=== PATIENT | male | born 1980 | race African-American/Black ===

== ENCOUNTER 2017-01-29 21:03 | Emergency (ER) | payer SELFPAY ==
[~2017-01-29 21:03] MED LIST: ULCER MEDICATION PO
[2017-01-29 21:05] VITALS: BP 124/85; PULSE 69; RESP 26; TEMP 99; O2SAT 98
--- NOTE | 2017-01-29 21:43 | PD ---
HPI Chief Complaint: Dizziness Time Seen by Provider: 21:42 Travel History International Travel<30 days: No Contact w/Intl Traveler<30days: No Traveled to known affect area: No History of Present Illness HPI 36-year-old Afro-[place] male presents the emergency department with generalized weakness/dizziness, decreased appetite, nausea, and headache. Patient denies sore throat or ear pain. Patient denies chest pain, but does have some congestion. Patient denies significant abdominal pain other than nausea. No urinary symptoms or diarrhea. Patient has mild body aches. He states his has been sick. Headache pain is about a 4 out of 10. He describes it as pressure. He has no known drug allergies. 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) Social History Alcohol Use: No Tobacco Use: Yes (1 PPD) Substance Use: No Allergies-Medications (Allergen,Severity, Reaction): Coded Allergies: No Known Allergies (Verified Adverse Reaction, Unknown, 01/29/17) Reported Meds & Prescriptions Reported Meds & Active Scripts Active No Active Prescriptions or Reported Medications Review of Systems Except as stated in HPI: all other systems reviewed are Neg General / Constitutional: Positive: Chills, No: Fever Eyes: Positive: Blurred Vision, No: Diploplia, Photophobia, Drainage, Redness, Foreign Body Sensation, Pain, Tearing, Blind Spots, Visual changes, Blindness HENT: Positive: Headaches, Lightheadedness, Rhinitis, Rhinorrhea, Congestion, No: Vertigo, Sore Throat, Nosebleed, Neck Stiffness, Neck Pain, Masses, Dental Difficulties, Earache Cardiovascular: No: Chest Pain or Discomfort Respiratory: No: Cough, Shortness of Breath, Wheezing, Sneezing Gastrointestinal: Positive: Nausea, No: Vomiting, Diarrhea, Abdominal Pain Genitourinary: No: Dysuria Musculoskeletal: Positive: Myalgias, No: Pain Skin: No Rash Neurologic: No: Weakness Psychiatric: No: Depression Endocrine: No: Polydipsia Hematologic/Lymphatic: No: Easy Bruising Physical Exam Narrative GENERAL: Patient appears ill but not septic. SKIN: Warm and dry. Normal color. Normal turgor. HEAD: Atraumatic. Normocephalic. Patient has mild sinus tenderness with percussion to the maxillary sinuses. EYES: Pupils equal and round. No scleral icterus. No injection or drainage. ENT: No nasal bleeding or discharge. Mucous membranes pink and moist. TMs are dull bilaterally. Posterior pharynx seems somewhat erythematous with mild swelling noted. Uvula is midline. No obvious postnasal drip. NECK: Trachea midline. Supple and nontender. CARDIOVASCULAR: Regular rate and rhythm. RESPIRATORY: No accessory muscle use. Coarse breath sounds to auscultation. Breath sounds equal bilaterally. GASTROINTESTINAL: Abdomen soft, non-tender, nondistended. Hepatic and splenic margins not palpable. MUSCULOSKELETAL: Extremities without clubbing, cyanosis, or edema. No obvious deformities. NEUROLOGICAL: Awake and alert. No obvious cranial nerve deficits. Motor grossly within normal limits. Five out of 5 muscle strength in the arms and legs. Normal speech. PSYCHIATRIC: Appropriate mood and affect; insight and judgment normal. Data Data Last Documented VS Vital Signs Date Time Temp Pulse Resp B/P (MAP) Pulse Ox O2 Delivery O2 Flow Rate FiO2 01/29/17 21:48 69 16 132/72 (92) 100 Room Air 01/29/17 21:05 99.0 Orders Orders Complete Blood Count With Diff (01/29/17 21:49) Comprehensive Metabolic Panel (01/29/17 21:49) Urinalysis - C+S If Indicated (01/29/17 21:49) Iv Access Insert/Monitor (01/29/17 21:49) Ecg Monitoring (01/29/17 21:49) Oximetry (01/29/17 21:49) Sodium Chlor 0.9% 1000 Ml Inj (Ns 1000 M (01/29/17 21:49) Sodium Chloride 0.9% Flush (Ns Flush) (01/29/17 22:00) Ondansetron Inj (Zofran Inj) (01/29/17 22:00) Ketorolac Inj (Toradol Inj) (01/29/17 22:00) Influenzae A/B Antigen (01/29/17 21:49) Labs Laboratory Tests Test 01/29/17 21:55 01/29/17 22:35 White Blood Count 8.3 TH/MM3 Red Blood Count 5.82 MIL/MM3 Hemoglobin 13.7 GM/DL Hematocrit 42.0 % Mean Corpuscular Volume 72.2 FL Mean Corpuscular Hemoglobin 23.6 PG Mean Corpuscular Hemoglobin Concent 32.7 % Red Cell Distribution Width 16.1 % Platelet Count 220 TH/MM3 Mean Platelet Volume 8.4 FL Neutrophils (%) (Auto) 53.8 % Lymphocytes (%) (Auto) 37.1 % Monocytes (%) (Auto) 7.0 % Eosinophils (%) (Auto) 1.2 % Basophils (%) (Auto) 0.9 % Neutrophils # (Auto) 4.5 TH/MM3 Lymphocytes # (Auto) 3.1 TH/MM3 Monocytes # (Auto) 0.6 TH/MM3 Eosinophils # (Auto) 0.1 TH/MM3 Basophils # (Auto) 0.1 TH/MM3 CBC Comment DIFF FINAL Differential Comment Blood Urea Nitrogen 12 MG/DL Creatinine 1.02 MG/DL Random Glucose 76 MG/DL Total Protein 7.8 GM/DL Albumin 3.9 GM/DL Calcium Level 9.1 MG/DL Alkaline Phosphatase 53 U/L Aspartate Amino Transf (AST/SGOT) 47 U/L Alanine Aminotransferase (ALT/SGPT) 57 U/L Total Bilirubin 0.4 MG/DL Sodium Level 140 MEQ/L Potassium Level 4.5 MEQ/L Chloride Level 108 MEQ/L Carbon Dioxide Level 26.9 MEQ/L Anion Gap 5 MEQ/L Estimat Glomerular Filtration Rate 100 ML/MIN MDM Medical Decision Making Medical Screen Exam Complete: Yes Emergency Medical Condition: Yes Differential Diagnosis Dizziness. Viral illness. Influenza. Headache. Narrative Course Patient is felt to be medically stable at time of exam. Labs ordered including CBC, CMP, urinalysis, and rapid influenza. IV access is obtained patient is given 4 mg Zofran IV as well as 30 mg Toradol IV. Patient is given 1000 mL normal saline bolus. Rapid influenza is negative. CBC is unremarkable. CMP is unremarkable as well. Patient is felt to have sudden onset viral illness. Patient was given Tamiflu 75 mg twice a day for 5 days for empiric treatment. Patient is to rest, push fluids, take Tylenol Motrin as needed. Follow-up with primary care physician as recommended. Work note is given. Diagnosis Primary Impression: Systemic viral illness Referrals: [facility] Primary Care Physician Patient Instructions: General Instructions, Oseltamivir (By mouth) Departure Forms: Work Release Enter return to work date: Jan 31, 2017 Additional Instructions: Rapid influenza is negative. CBC is unremarkable. CMP is unremarkable as well. Patient is felt to have sudden onset viral illness. Patient was given Tamiflu 75 mg twice a day for 5 days for empiric treatment. Patient is to rest, push fluids, take Tylenol Motrin as needed. Follow-up with primary care physician as recommended. Work note is given. Med/Other Pt SpecificInfo: Prescription(s) given Scripts No Active Prescriptions or Reported Meds Disposition: 01 DISCHARGE HOME Condition: Stable Esau Iglesias Jan 29, 2017 21:43
[2017-01-29 21:48] VITALS: BP 132/72; PULSE 69; RESP 16; O2SAT 100
[2017-01-29] MEDS ORDERED: SODIUM CHLOR 0.9% 1000 ML INJ 1,000 ML IV SCH (21:49)
[2017-01-29] MEDS ORDERED: ONDANSETRON HCL 4 MG/2 ML VIAL IV PUSH ONE (22:00)
[2017-01-29] MEDS ORDERED: KETOROLAC TROMETHAMINE 30 MG/ML (IVP) VIAL IV PUSH ONE (22:00)
[2017-01-29] MEDS ORDERED: SODIUM CHLORIDE 0.9% FLUSH 10 ML FLUSH IV FLUSH PRN (22:00)
[2017-01-29 22:08] LABS: AUTOMATED NEUTROPHIL # 4.5 TH/MM3 (1.8-7.7); BASOPHIL # 0.1 TH/MM3 (0-0.2); BASOPHIL % 0.9 % (0.0-2.0); EOSINOPHIL # 0.1 TH/MM3 (0-0.4); EOSINOPHIL % 1.2 % (0.0-4.0); HEMOGLOBIN 13.7 GM/DL (13.0-17.0); LYMPH % 37.1 % (9.0-44.0); LYMPHOCYTE # 3.1 TH/MM3 (1.0-4.8); MEAN CELL VOLUME 72.2 FL (80.0-100.0); MEAN CORPUSCULAR HEMOGLOBIN 23.6 PG (27.0-34.0); MEAN CORPUSCULAR HGB CONC 32.7 % (32.0-36.0); MEAN PLATELET VOLUME 8.4 FL (7.0-11.0); MONOCYTE # 0.6 TH/MM3 (0-0.9); NEUT % 53.8 % (16.0-70.0); PLATELET COUNT 220 TH/MM3 (150-450); RED BLOOD COUNT 5.82 MIL/MM3 (4.50-5.90); RED CELL DISTRIBUTION WIDTH 16.1 % (11.6-17.2); WHITE BLOOD COUNT 8.3 TH/MM3 (4.0-11.0)
[2017-01-29 22:33] LABS: ALBUMIN 3.9 GM/DL (3.4-5.0); ALKALINE PHOSPHATASE 53 U/L (45-117); ALT (GPT) 57 U/L (12-78); AST (GOT) 47 U/L (15-37); BICARBONATE 26.9 MEQ/L (21.0-32.0); BLOOD UREA NITROGEN 12 MG/DL (7-18); CALCIUM 9.1 MG/DL (8.5-10.1); CHLORIDE 108 MEQ/L (98-107); CREATININE 1.02 MG/DL (0.60-1.30); GLOMERULAR FILTRATION RATE 100 ML/MIN (>89); GLUCOSE,RANDOM 76 MG/DL (74-106); SODIUM (NA) 140 MEQ/L (136-145); TOTAL BILIRUBIN ADULT 0.4 MG/DL (0.2-1.0); TOTAL PROTEIN 7.8 GM/DL (6.4-8.2)
[2017-01-29] MEDS ORDERED: OSEL75 PO (22:48)
[2017-01-29 22:53] LABS: BILIRUBIN, URINE NEG (NEG); BLOOD, URINE NEG (NEG); GLUCOSE,URINE NEG (NEG); KETONE, URINE NEG (NEG); MUCUS URINE FEW /lpf (OCC); NITRITE,URINE NEG (NEG); PH, URINE 6.5 (5.0-8.5); SQUAMOUS EPITHELIAL CELL URINE <1 /hpf (0-5); URINE COLOR YELLOW (YELLW/STRAW); URINE LEUKOCYTE ESTERASE TRACE (NEG)
[2017-01-29 23:07] VITALS: BP 130/70; PULSE 76; RESP 16; O2SAT 99
== END 2017-01-29 23:08 | disposition home or self-care (01) ==
LOC: NEPC 21:03
DX: B33.8 Other specified viral diseases (principal); F17.200 Nicotine dependence, unspecified, uncomplicated
CPT/HCPCS: 80053; 81001; 85025; 87804; 96361; 96374; 96375; 99284; J1885; J2405; J7030